=== PATIENT | male | born 1970 | race Caucasian/White ===

== ENCOUNTER → 2023-11-07 17:42 | Outpatient (REF) | payer BC, SELFPAY | LOC: RCS 17:42 | PROVIDERS: ATTENDING PHYSICIAN Internal Medicine Cardiovascular Disease; FAMILY PHYSICIAN Nurse Practitioner | DX: I49.3 Ventricular premature depolarization (principal) | CPT/HCPCS: 93306 ==

== ENCOUNTER 2024-03-19 20:29 | Emergency (ER) | payer BC, SELFPAY ==
[2024-03-19 20:34] VITALS: BP 162/109
[2024-03-19 21:00] VITALS: BP 128/104
[2024-03-19 21:26] VITALS: BMI 24.3
[2024-03-19 21:32] VITALS: BP 128/104
[2024-03-19 21:33] LABS: % Basophils 0.7 % (0-2); % Eosinophils 2.3 % (0-6); % Immature Granulocytes 0.4 % (0-0.5); % Neutrophils 70.6 % (42.2-75.2); Absolute Basophils 0.1 10^3/uL (0-0.2); Absolute Eosinophils 0.2 10^3/uL (0-0.7); Absolute Lymphocytes 1.5 10^3/uL (1.2-3.4); Absolute Monocytes 0.7 10^3/uL (0.1-0.6); Absolute Neutrophils 5.8 10^3/uL (1.4-6.5); Hematocrit 41.3 % (39.0-52.0); Hemoglobin 15.1 g/dL (13.0-18.0); Mean Corp Hgb Conc. 36.6 g/dL (33.0-37.0); Mean Corpuscular Hgb 30.6 pg (27.0-31.0); Mean Corpuscular Volume 83.6 fL (80.0-94.0); Mean Platelet Volume 9.7 fL (7.4-10.4); Nucleated Red Blood Cells % 0 % (-); Platelet Count 218 10^3/uL (130-400); Red Blood Cell Count 4.94 10^6/uL (4.70-6.10); Red Cell Dist. Width 12.5 % (11.5-14.5); White Blood Cell Count 8.2 10^3/uL (4.8-10.8)
[2024-03-19 21:54] LABS: ALT (SGPT) 23 U/L (0-50); AST (SGOT) 37 U/L (17-59); Albumin 4.5 g/dl (3.5-5.0); Alkaline Phosphatase 92 U/L (38-126); Blood Urea Nitrogen 14 mg/dl (9-20); Calcium 9.2 mg/dl (8.4-10.2); Carbon Dioxide 28 mmol/L (22-30); Chloride 103 mmol/L (98-107); Estimated Creatinine Clearance 103 ml/min; Glucose 173 mg/dl (70-99); Potassium 3.2 mmol/L (3.5-5.1); Sodium 139 mmol/L (135-145); Total Bilirubin 1.6 mg/dl (0.2-1.3); Total Protein 7.1 g/dl (6.3-8.2); eGFR > 60.00
[2024-03-19 22:00] VITALS: BP 146/95
[2024-03-19 22:02] LABS: Troponin I 0.038 ng/ml
[2024-03-19 23:00] VITALS: BP 143/104
[2024-03-19] MEDS: LOPRESSOR 5 MG IV (23:01)
[2024-03-19] MEDS: ELIQUIS 5 MG PO (23:01)
[2024-03-19] MEDS: KCL 40 MEQ PO (23:01)
[2024-03-20] VITALS: BP 137/98
[2024-03-20 00:34] LABS: Troponin I 0.036 ng/ml
--- NOTE | 2024-03-20 04:15 | ED.GENMED ---
History of Present Illness
General
Chief Complaint: Heart Rate Problem
Source: patient
Exam Limitations: none
Time Seen by Provider: 03/19/24 21:39
Nursing documentation reviewed up to this point in time: agreed with
History of Present Illness
History of Present Illness:
54-year-old male with a past medical history of ulcerative colitis on mesalamine who presents to the emergency room with his for evaluation of palpitations. Patient reports that he has a longstanding history of palpitations and has been seen
by cardiology (Dr. Rodríguez) in the past�he says that he was told it was related to PVCs and even had a serger which showed PVCs but no other issues. He was prescribed diltiazem to take if he feels the symptoms are bothersome but has never
taken it and does not take any cardiac medications. He says that over the past few days he has had occasional palpitations which he attributed to PVCs. Today he was outside doing yard work ( says that he was moving heavy bags of mulch) and
noticed that his heart was racing more persistently. He says that he tried to work through the palpitations but this evening when they went to dinner with friends patient noted palpitations were worsening and checked his heart rate and noticed
that it was elevated and brought him to the emergency room. He denies any chest pain. Denies any shortness of breath. Denies any dizziness or lightheadedness. He denies any other complaints. On arrival his EKG shows atrial flutter�no history of
atrial flutter this is a new diagnosis for him.
Past History
Past History
ED Past Medical History: Other (Seasonal allergies, ulcerative colitis )
ED Past Surgical History: None
Social History
Tobacco: Non-smoker
Review of Systems
Review of Systems
All Other Systems: ROS reviewed and negative except as documented in HPI and ROS
Constitutional: Denies fever or chills
Respiratory: Denies cough or trouble breathing
Cardiac: Reports palpitations; Denies chest pain, diaphoresis or syncope
ABD/GI: Denies abdominal pain, nausea or vomiting
: Denies flank pain
Musculoskeletal: Denies neck pain or back pain
Neurological: Denies dizzy or headache
Phy Exam
Physical Exam
Physical Exam:
General: Awake, alert, oriented x3; no acute distress
Head: Normocephalic, atraumatic
Eyes: Conjunctiva normal
Throat: Airway intact, handling secretions
Neck: Trachea midline, supple without meningismus
Lungs: Clear to auscultation bilaterally, no wheezing, rales, rhonchi
Heart: Tachycardia with ostensibly regular rhythm, no murmurs, gallops, or rubs appreciated
Abd: Soft, non distended, nontender
Neuro: No gross deficit
Skin: no rash
Extremities: No edema in extremities, equal pulses in all extremities
Scores
[id number] Score for Afib Stroke Risk
Age in Years (65=0, 65-74=1, >/=75=2): <65
Sex (Female=+1): Male
Congestive Heart Failure History (Yes=+1): No
Hypertension History (Yes=+1): No
Stroke/TIA/Thromboembolism History (Yes=+2): No
Vascular Disease History (Yes=+1): No
Diabetes Mellitus (Yes=+1): No
Score: 0
Anticoagulation Recommendations: Anticoagulation not indicated (as validated in nonvalvular afib). Consider anticoagulation irrespective of score in patients with HCM
Heart Failure Risk
Heart Failure Risk Score: Not Applicable
Heart Score for Chest Pain Patients
STEMI patient?: Not applicable
Withdrawal Assessment of Alcohol
Withdrawal Assessment Completed?: Not applicable
Course
Orders/Labs/Results
Orders:
Orders
03/19/24 20:30
ECG [Electrocardiogram (*1)] Urgent
Reason for Study: Chest Pain
EKG- Treatment ONCE
03/19/24 21:28
CBC/With Diff [Complete Blood Count/With Diff] Urgent
CMP [Comprehensive Metabolic Panel] Urgent
Troponin I Urgent
03/19/24 22:48
Apixaban [Eliquis] 5 mg PO ONCE ONE
Metoprolol [Lopressor] 5 mg IV NOW STA
03/19/24 22:49
Potassium Chloride [KCl] 40 meq PO NOW STA
03/19/24 23:28
Electrocardiogram (*1) Urgent
Reason for Study: Palpitations
EKG- Treatment ONCE
03/19/24 23:59
Troponin I Urgent
Abnormal Lab Results
03/19/24 03/20/24
2128 00:00
Absolute Monos (auto) 0.7 H 10^3/uL
(0.1-0.6)
Lymphocytes % 18.0 L %
(20.5-51.1)
Potassium 3.2 L mmol/L
(3.5-5.1)
Glucose 173 H mg/dl
(70-99)
Total Bilirubin 1.6 H mg/dl
(0.2-1.3)
Troponin I 0.038 H* ng/ml 0.036 H* ng/ml
03/19/24 21:28
03/19/24 21:28
Vital Signs
Initial and Last Documented VS:
Initial Vital Signs
Temp Pulse Resp BP Pulse Ox
36.8 C 140 20 162/109 97
03/19/24 20:34 03/19/24 20:34 03/19/24 20:34 03/19/24 20:34 03/19/24 20:34
Last Documented Vital Signs
Temp Pulse Resp BP Pulse Ox
36.8 C 75 13 137/98 98
03/19/24 20:34 03/20/24 00:30 03/20/24 00:30 03/20/24 00:00 07/04/24 00:40
MDM/Problems Addressed
Differential Diagnosis Includes:
Atrial fibrillation/flutter
MDM/Problems Addressed:
54-year-old male presents for evaluation of palpitations�this is been an ongoing issue that he attributed to PVCs diagnosed on outpatient cardiology workup, perhaps worse over the past few days and today has been persistent for much of the day and
worse this evening. No chest pain, lightheadedness, shortness of breath or any other symptoms aside from palpitations. On arrival he is hypertensive and tachycardic. Blood pressure normalized by my assessment. Rest of vitals within normal
limits. Physical exam as above. EKG on arrival shows atrial flutter with variable conduction. EKG showed heart rate in the 90s but on my assessment his heart rate is roughly 150. He would not be a good candidate for ED cardioversion given that
he is not anticoagulated and has had intermittent palpitations for quite some time. Will treat with IV Lopressor. Will start on Eliquis pending basic labs. Reassess after the above.
Labs reviewed: CBC unremarkable, CMP shows mild hypokalemia which were repleted p.o. His troponin was marginally elevated at 0.038 likely related to tachycardia�he has no signs or symptoms of ACS, will trend this. After single dose of IV Lopressor
patient heart rate in the 70s appears sinus on the monitor. Will repeat EKG.
Repeat EKG confirms spontaneous conversion to sinus rhythm with IV Lopressor. Will await repeat troponin and if flat and downtrending likely can be discharged with cardiology follow-up.
Repeat troponin downtrending. Patient asymptomatic and feeling well since spontaneous conversion to sinus rhythm. We had a long discussion we will plan to start on metoprolol as well as Eliquis at least to start after prolonged episode of atrial
flutter. He has already seen cardiology in the past we will have him follow-up as an outpatient. He feels very comfortable with this plan. We did speak about return precautions and all questions answered.
Acute Exacerbation and/or Progression of Chronic Illness:
Acutely hypertensive
Acute Exacerbation and/or Progression of Chronic Illness: HTN
*Pulse Oximetry
Patient hypoxic: no
*EKG
Interpreted by ED Provider?: Yes
Heart Rate: 96
Rate: normal
Rhythm: atrial flutter
[place]: normal axis
Interval: normal interval
QRS Pattern: normal QRS
Ischemia: no ischemia
*Critical Care Note
Total Time (30-74mins, 75-104mins- exclusive of procedures): Not Applicable
Data Reviewed
Source: patient and spouse
ED Attending Note
-
Portions of this chart may have been created with voice recognition software.� Occasional wrong word or��sound alike� substitutions may have occurred due to the inherent limitations of voice recognition software.
Discharge Plan
Departure
Patient Disposition: Home (Routine Discharge)
Date of Disposition: 03/20/24
Time of Disposition: 00:37
Patient with high blood pressure during this ER visit?: Yes
Discharge Problem:
Atrial flutter
Instructions: Atrial Flutter (DC)
Prescriptions:
New
metoprolol succinate [Toprol XL] 25 mg tablet extended release 24 hr
12.5 mg PO DAILY Qty: 30 0RF
Eliquis 5 mg tablet
5 mg PO BID Qty: 60 0RF
No Action
doxycycline hyclate 100 MG capsule
100 mg PO Q12 Qty: 20 0RF
prednisone 50 MG tablet
50 mg PO DAILY Qty: 5 0RF
Referrals:
Vinny Gonzalez MD [Family Provider] - Call in 1-3 days for appt
Reema Sheets MD [Active] - Call in 1-3 days for appt (Cardiology)
Activity Restrictions/Additional Instructions:
Thank you for visiting the Emergency Department at [facility].
1. Please schedule a follow up appointment as directed. Call first thing tomorrow morning to make an appointment.
2. If indicated, please take your medications as instructed and indicated on discharge paperwork.
3. If any of your symptoms do not improve, or persist, or become more severe within 6-12 hours, please return to the emergency department for further care.
4. Please return to the emergency department if you develop a headache, neck pain/stiffness, fever greater than 100.4F, chest pain, shortness of breath, persistent nausea, vomiting, slurred speech, difficulty walking, numbness/tingling, weakness,
signs of infection or any other symptoms that are worrisome to you.
Please call [phone] if you have any questions.
Interventions
Interventions:
*Risk Screen - Suicide Last Done: 03/19/24 20:34
*General Assessment Last Done: 03/19/24 20:34
*Neglect/Abuse Screening Last Done: 03/19/24 20:34
ED- Fall Risk Assessment Last Done: 03/19/24 21:30
*Nursing Disposition Last Done: 03/20/24 00:49
ED- Cardiac Assessment Last Done: 03/19/24 23:19
ED- Pulmonary Assessment Last Done: 03/19/24 21:30
Discharge Date and Time
Discharge Date/Time: 03/20/24 00:53
Print Language: KINYARWANDA
== END 2024-03-20 00:53 | disposition home or self-care (01) ==
LOC: EMR 20:29
PROVIDERS: EMERGENCY PHYSICIAN Emergency Medicine; FAMILY PHYSICIAN Family Medicine
DX: I48.92 Unspecified atrial flutter (principal); K51.90 Ulcerative colitis, unspecified, without complications; I49.3 Ventricular premature depolarization; Z79.01 Long term (current) use of anticoagulants
CPT/HCPCS: 99284; 96374; 80053; 84484; 85025; 93005

== ENCOUNTER 2024-03-20 19:44 | Emergency (ER) | payer BC, SELFPAY ==
[2024-03-20 19:47] VITALS: BP 142/80
[2024-03-20 20:22] VITALS: BMI 24.2
[2024-03-20 20:23] VITALS: BP 136/89
[2024-03-20 21:00] VITALS: BP 151/106
--- NOTE | 2024-03-20 21:26 | ED.GENMED ---
History of Present Illness
General
Chief Complaint: Heart Rate Problem
Source: patient and spouse
Exam Limitations: none
Time Seen by Provider: 03/20/24 20:56
Nursing documentation reviewed up to this point in time: agreed with
History of Present Illness
History of Present Illness:
54-year-old male with a past medical history of ulcerative colitis and newly diagnosed atrial flutter who returns to the emergency room with his for evaluation of bradycardia. Patient was here last night with new onset atrial flutter with
variable conduction. Heart rate was uncontrolled. He was treated with IV metoprolol and spontaneously converted to a sinus rhythm. He was discharged on Toprol-XL 12.5 mg daily and Eliquis 5 mg twice daily. Referred for cardiology follow-up as an
outpatient. He says that today he took his medication at around noon. He says that a few hours later he started to feel lightheaded and checked his heart rate and noted that it was in the 40s to 50s. He came to the emergency room for evaluation.
Since arrival he says he is feeling a bit better, heart rate has rebounded now in the 60s. He denies any chest pain or shortness of breath or any other issues today.
Past History
Past History
ED Past Medical History: Other (Seasonal allergies, ulcerative colitis )
ED Past Surgical History: None
Social History
Tobacco: Non-smoker
Review of Systems
Review of Systems
All Other Systems: ROS reviewed and negative except as documented in HPI and ROS
Respiratory: Denies trouble breathing
Cardiac: Denies chest pain or syncope
ABD/GI: Denies abdominal pain or nausea
: Denies flank pain
Musculoskeletal: Denies neck pain or back pain
Neurological: Reports dizzy; Denies headache
Phy Exam
Physical Exam
Physical Exam:
General: Awake, alert, oriented x3; no acute distress
Head: Normocephalic, atraumatic
Eyes: Conjunctiva normal
Throat: Airway intact, handling secretions
Neck: Trachea midline
Lungs: Clear to auscultation bilaterally, no wheezing, rales, rhonchi
Heart: Regular rate and rhythm, no murmurs, gallops, or rubs
Neuro: No gross deficits
Extremities: Warm and well-perfused with no edema
Scores
Heart Failure Risk
Heart Failure Risk Score: Not Applicable
Heart Score for Chest Pain Patients
STEMI patient?: Not applicable
Withdrawal Assessment of Alcohol
Withdrawal Assessment Completed?: Not applicable
Course
Orders/Labs/Results
Orders:
Orders
03/20/24 19:46
Electrocardiogram (*1) Urgent
Reason for Study: Bradycardia / Tachycardia
EKG- Treatment ONCE
03/20/24 21:31
Potassium Urgent
03/20/24 22:23
Potassium Chloride [KCl] 40 meq PO NOW STA
Abnormal Lab Results
03/20/24
21:31
Potassium 3.3 L mmol/L
(3.5-5.1)
03/20/24 21:31
Vital Signs
Initial and Last Documented VS:
Initial Vital Signs
Temp Pulse Resp BP Pulse Ox
36.6 C 66 22 142/80 98
03/20/24 19:47 03/20/24 19:47 03/20/24 19:47 03/20/24 19:47 03/20/24 19:47
Last Documented Vital Signs
Temp Pulse Resp BP Pulse Ox
36.6 C 51 13 136/87 96
03/20/24 19:47 03/20/24 22:00 03/20/24 22:00 03/20/24 22:00 03/20/24 21:45
MDM/Problems Addressed
Differential Diagnosis Includes:
Symptomatic bradycardia
MDM/Problems Addressed:
54-year-old male who is here last night for new onset atrial flutter and started on Toprol and Eliquis returns to the emergency room with lightheadedness and bradycardia few hours after starting metoprolol. Symptoms seem to have improved here in
the emergency room. Heart rate in the 60s. Blood pressure acceptable. Rest of vitals normal. He is having symptomatic bradycardia related to recently initiated Toprol-XL�was started on 12.5 mg p.o. once daily. I had a long discussion with
patient and . He remains in sinus rhythm here. We discussed potentially trying to cut dose in half versus discontinuing Toprol altogether and monitoring heart rate. Patient and would prefer to discontinue the Toprol, they will continue
the Eliquis and follow-up with cardiology next week to discuss. I think that is a reasonable plan. Will observe him on the monitor here for additional significant bradycardia. He did have low potassium yesterday we can recheck this to ensure that
it has rebounded. Reassess after the above.
Monitored here in the emergency room with no additional significant bradycardia�lowest heart rate in the 50s and no symptoms. Blood pressures essentially stable. Feeling well on clinical reassessment. We did recheck potassium it was still
slightly low. We gave additional dose of potassium and I encouraged increased potassium intake. Stable for discharge at this point with plan to discontinue metoprolol�we did discuss measures to take if he notices sustained high heart rate once
again including trying a dose of the metoprolol prior to returning to the emergency room. Spoke about follow-up plan with cardiology. All questions answered.
Chronic conditions affecting care:
Atrial flutter
*Pulse Oximetry
Patient hypoxic: no
*EKG
Interpreted by ED Provider?: Yes
Heart Rate: 65
Rate: normal
Rhythm: sinus
[place]: normal axis
Interval: normal interval
QRS Pattern: normal QRS
Ischemia: no ischemia
*Critical Care Note
Total Time (30-74mins, 75-104mins- exclusive of procedures): Not Applicable
Data Reviewed
Review of Other/Old Records Reveals: Labs
Source: patient, records and spouse
ED Attending Note
-
Portions of this chart may have been created with voice recognition software.� Occasional wrong word or��sound alike� substitutions may have occurred due to the inherent limitations of voice recognition software.
Discharge Plan
Departure
Patient Disposition: Home (Routine Discharge)
Date of Disposition: 03/20/24
Time of Disposition: 22:35
Patient with high blood pressure during this ER visit?: Yes
Discharge Problem:
Bradycardia, drug induced
Instructions: Bradycardia
Prescriptions:
No Action
doxycycline hyclate 100 MG capsule
100 mg PO Q12 Qty: 20 0RF
prednisone 50 MG tablet
50 mg PO DAILY Qty: 5 0RF
metoprolol succinate [Toprol XL] 25 mg tablet extended release 24 hr
12.5 mg PO DAILY Qty: 30 0RF
Eliquis 5 mg tablet
5 mg PO BID Qty: 60 0RF
Referrals:
Villa Lomas MD [Active] - Call in 1-3 days for appt (Call in AM)
Vinny Gonzalez MD [Family Provider] -
Activity Restrictions/Additional Instructions:
You were seen in the emergency room for low heart rate shortly after starting a new medication (metoprolol) for atrial flutter. Your low heart rate is likely related to this medicine. We discussed all of the treatment options and ultimately
decided to discontinue this metoprolol. You should still continue the blood thinner (Eliquis). You should call the face painter tomorrow to schedule follow-up appointment. You should monitor your heart rate�if you have uncontrolled high heart
rate (greater than 100) for more than 30 minutes you can try taking a dose of the metoprolol and if it remains high come to the emergency room. Your potassium level was still slightly low today. You should try to add some potassium to your diet
either through an [id number] supplement, sports drinks, or foods (bananas, oranges, melons, leafy greens, tomatoes).
Interventions
Interventions:
*Risk Screen - Suicide Last Done: 03/20/24 19:47
*General Assessment Last Done: 03/20/24 20:22
*Neglect/Abuse Screening Last Done: 03/20/24 19:47
ED- Fall Risk Assessment Last Done: 03/20/24 20:22
ED- Cardiac Assessment Last Done: 03/20/24 20:22
ED- Pulmonary Assessment Last Done: 03/20/24 20:22
Discharge Date and Time
Print Language: CHADIAN
[2024-03-20 21:58] LABS: Potassium 3.3 mmol/L (3.5-5.1)
[2024-03-20 22:00] VITALS: BP 136/87
[2024-03-20] MEDS: KCL 40 MEQ PO (22:36)
== END 2024-03-20 22:53 | disposition home or self-care (01) ==
LOC: EMR 19:44
PROVIDERS: EMERGENCY PHYSICIAN Emergency Medicine; FAMILY PHYSICIAN Family Medicine
DX: R00.1 Bradycardia, unspecified (principal); R03.0 Elevated blood-pressure reading, without diagnosis of hypertension; K51.90 Ulcerative colitis, unspecified, without complications; I48.92 Unspecified atrial flutter
CPT/HCPCS: 99284; 84132; 93005

== ENCOUNTER → 2024-04-30 08:22 | Outpatient (REF) | payer BC, SELFPAY | LOC: RCS 08:22 | PROVIDERS: ATTENDING PHYSICIAN Physician Assistant; FAMILY PHYSICIAN Nurse Practitioner | DX: I48.3 Typical atrial flutter (principal); I49.3 Ventricular premature depolarization; R94.31 Abnormal electrocardiogram [ECG] [EKG]; R03.0 Elevated blood-pressure reading, without diagnosis of hypertension | CPT/HCPCS: 93017; 93350 ==

== ENCOUNTER → 2024-05-06 09:41 | Outpatient (REF) | payer BC, SELFPAY | LOC: DHSLP 09:41 | PROVIDERS: ATTENDING PHYSICIAN Physician Assistant; FAMILY PHYSICIAN Nurse Practitioner | DX: G47.30 Sleep apnea, unspecified (principal); R06.83 Snoring | CPT/HCPCS: 95800 ==